=== PATIENT | male | born 1990 | race African-American/Black ===

== ENCOUNTER 2017-04-05 14:55 | Emergency (ER) | payer OTHER ==
[2017-04-05 15:44] LABS: LEUKOCYTE ESTERASE, URINE NEGATIVE (NEGATIVE); OCCULT BLOOD,URINE TRACE-LYSE (NEGATIVE)
[2017-04-05 16:04] LABS: CLARITY,URINE CLEAR (CLEAR)
[2017-04-05 16:06] LABS: ICTOTEST,URINE NEGATIVE
[2017-04-05 16:07] LABS: RBC,URINE 0-5 /HPF (0-5); SQUAMOUS EPITHELIAL CELL,UR RARE Squamous (<= Few)
[2017-04-05 16:08] LABS: BACTERIA,URINE None Seen /HPF (None Seen); MUCUS,URINE Moderate Strands
--- NOTE | 2017-04-05 16:54 | ED Physician Documentation ---
History of Present Illness - Stated complaint Stated Complaint: MALE - Chief complaint Chief Complaint: General - History obtained from History obtained from: Patient - History of Present Illness Timing: Other (2 days of urinary frequency with mild low backache. He thinks he might have a UTI. He is not sexually active. He has never had a UTI. He does note some weight loss over the last month with mild blurry vision. He took Azo prior to arrival.) Review of Systems Ten Systems: 10 systems reviewed and negative Constitutional: denies: Fever, Chills Cardiac: reports: Reviewed and negative Respiratory: reports: Reviewed and negative PD PAST MEDICAL HISTORY - Past Medical History Past Medical History: Yes Respiratory: Asthma - Past Surgical History Past Surgical History: No - Present Medications Home Medications: Ambulatory Orders Medication Instructions Recorded Confirmed Albuterol 2.5 mg INH Q4H PRN 04/05/17 04/05/17 - Allergies Allergies/Adverse Reactions: Allergies Allergy/AdvReac Type Severity Reaction Status Date / Time No Known Drug Allergies Allergy Verified 04/05/17 15:21 - Social History Does the pt smoke?: No Smoking Status: Never smoker Does the pt drink ETOH?: No Does the pt have substance abuse?: No - Family History Family history: reports: Non contributory - Immunizations Immunizations are current?: Yes PD ED PE NORMAL - Vitals Vital signs reviewed: Yes - General General: Alert and oriented X 3, No acute distress - HEENT HEENT: PERRL, EOMI - Neck Neck: Supple, no meningeal sign, No bony TTP - Cardiac Cardiac: RRR, No murmur - Respiratory Respiratory: No respiratory distress, Clear bilaterally - Abdomen Abdomen: Soft, Non tender - Back Back: No CVA TTP, No spinal TTP - Derm Derm: Normal color, Warm and dry - Extremities Extremities: No edema, No calf tenderness / cord - Neuro Neuro: Alert and oriented X 3, Normal speech - Psych Psych: Normal mood, Normal affect Results - Vitals Vitals: Vital Signs - 24 hr 04/05/17 15:19 Temperature 35.8 C L Heart Rate 100 Respiratory 18 Rate Blood Pressure 162/116 H O2 Saturation 99 Oxygen O2 Source Room air - Labs Labs: Laboratory Tests 04/05/17 04/05/17 15:36 16:58 POC Whole Bld Glucose 111 H Urine Color DK. ORANGE Urine Clarity CLEAR Urine pH 6.0 Ur Specific Lafferty 1.025 Urine Protein Urine Glucose (UA) Urine Ketones Urine Occult Blood TRACE-LYSE Urine Nitrite Urine Bilirubin Urine Urobilinogen Ur Leukocyte Esterase NEGATIVE Urine RBC 0-5 Urine WBC 0-3 Ur Squamous Epith Cells RARE Squamous Urine Bacteria None Seen Urine Mucus Moderate Strands Ur Microscopic Review INDICATED Urine Culture Comments Not Reportable PD MEDICAL DECISION MAKING - ED course ED course: The urine is less interpretable because of the Azo but there is no bacteriuria or white cells. He has not sexually active. And it would also be a little concerning for diabetes, but his blood sugar was only 111. He is constipated today and rectal spasm could explain his low backache and urinary frequency so we will trial some magnesium citrate he is advised to return if that does not fix him. Departure - Departure Disposition: 01 Home, Self Care Clinical Impression: Urinary frequency Condition: Good Record reviewed to determine appropriate education?: Yes Comments: Take the magnesium citrate, you should have a good bowel movement if that does not resolve your symptoms please return for reevaluation. Your blood pressure was elevated today on check into the emergency department. This does not mean that you have hypertension, it is a common phenomenon to come to the emergency department and have elevated blood pressure. I recommend that you see your primary care physician within the week to have it rechecked when you are feeling better. Call your doctor to arrange a follow-up appointment, make the next available appointment. In the interim, return anytime if worse or if new symptoms develop.
[2017-04-05] MEDS ORDERED: MAGNESIUM CITRATE 296 ML BOTTLE PO STA (17:02)
[2017-04-05 17:32] VITALS: BP 140/100
== END 2017-04-05 17:25 | disposition home or self-care (01) ==
LOC: ED 14:55
DX: R35.0 Frequency of micturition (principal); M54.5 Low back pain; R03.0 Elevated blood-pressure reading, without diagnosis of hypertension; J45.909 Unspecified asthma, uncomplicated
CPT/HCPCS: 81001; 99283; A9270; 81003; 87086